=== PATIENT | male | born 1945 | race Caucasian/White ===

== ENCOUNTER 2021-12-04 06:17 | Inpatient (IN) | payer OTHER, MEDICAID ==
[~2021-12-04] VITALS: Ht 162.6 cm; Wt 69.2 kg
[2021-12-04 08:57] LABS: BASOPHILS % 1.1 % (0.0-2.0); EOSINOPHILS % 3.8 % (0.0-5.0); HEMATOCRIT. 36.1 % (42.0-52.0); HEMOGLOBIN. 12.2 g/dL (14.0-18.0); LYMPHOCYTES % 35.9 % (20.0-50.0); MEAN CORPUSCULAR HEMOGLOBIN 33.9 pg (28.0-32.0); MEAN CORPUSCULAR VOLUME 100.3 fL (80.0-94.0); MONOCYTES % 6.5 % (2.0-8.0); NEUTROPHILS % 52.7 % (40.0-76.0); PLATELET 183 x1000/uL (130-400); RED CELL DISTRIBUTION WIDTH 14.1 % (11.6-14.6)
[2021-12-04 10:30] LABS: CHLORIDE 100 mEq/L (98-107)
[2021-12-04 10:48] LABS: PROTHROMBIN TIME 10.5 sec (9.6-11.0)
[2021-12-04] MEDS ORDERED: IODIXANOL 320MG/ML 100 ML BOTTLE IV ONE (12:39)
[2021-12-04] MEDS ORDERED: ALTEPLASE 2MG/VIAL ITC NR (13:00)
[2021-12-04] MEDS ORDERED: ACETAMINOPHEN 325MG TABLET PO PRN (13:15)
[2021-12-04] MEDS ORDERED: ONDANSETRON HCL 4MG/2ML INJ IV PRN (13:15)
[2021-12-04] MEDS ORDERED: CLONIDINE 0.1MG TABLET PO PRN (13:15)
[2021-12-04] MEDS ORDERED: ALTEPLASE 2MG/VIAL ITC ONE (13:15)
[2021-12-04] MEDS: DEXT 5%/0.45% NACL 1000ML 1,000 ML IV SCH (13:15)
[2021-12-04] MEDS ORDERED: FENTANYL CITRATE/PF 50MCG/ML 2ML VIAL ONE (13:29)
[2021-12-04] MEDS ORDERED: MIDAZOLAM HCL 2 MG/2 ML VIAL ONE (13:29)
[2021-12-04] MEDS ORDERED: HEPARIN 1000 UNITS/ML 10ML ONE (13:31)
[2021-12-04] MEDS ORDERED: LIDOCAINE HCL 1% 20ML VIAL (Pyxis) INJ ONE (13:35)
[2021-12-04] MEDS ORDERED: HYDRALAZINE 20MG/ML VIAL ONE (13:37)
[2021-12-04 15:07] VITALS: BP 112/63
[2021-12-04] MEDS ORDERED: SUCR1TAB PO (16:10)
[2021-12-04] MEDS ORDERED: MIDO10TA PO (16:10)
[2021-12-04 19:07] VITALS: BP 110/70
[2021-12-04 20:00] VITALS: BP 95/61
[2021-12-05] VITALS: BP 108/60
[2021-12-05 04:00] VITALS: BP 108/58
[2021-12-05] MEDS: SUCRALFATE 1G TABLET PO SCH ×4 (06:41→21:10)
[2021-12-05 08:00] VITALS: BP 140/80
[2021-12-05] MEDS: MIDODRINE HCL 5MG TABLET PO SCH (09:22)
[2021-12-05] MEDS ORDERED: CEFTRIAXONE 1 G PREMIX 50 ML IV SCH (11:45)
[2021-12-05 12:00] VITALS: BP 180/96
[2021-12-05] MEDS: DEXT 5%/0.45% NACL 1000ML 1,000 ML IV SCH (13:15)
[2021-12-05 13:28] LABS: BASOPHILS % 0.7 % (0.0-2.0); EOSINOPHILS % 3.6 % (0.0-5.0); HEMATOCRIT. 32.6 % (42.0-52.0); HEMOGLOBIN. 11.1 g/dL (14.0-18.0); LYMPHOCYTES % 37.9 % (20.0-50.0); MEAN CORPUSCULAR HEMOGLOBIN 33.3 pg (28.0-32.0); MEAN CORPUSCULAR VOLUME 97.9 fL (80.0-94.0); MONOCYTES % 6.5 % (2.0-8.0); NEUTROPHILS % 51.3 % (40.0-76.0); PLATELET 157 x1000/uL (130-400); RED BLOOD CELL COUNT 3.33 mill/uL (4.7-6.1)
[2021-12-05] MEDS ORDERED: VANCOMYCIN 1GM PMX (XELLIA) 200 ML IV NR (14:00)
[2021-12-05 14:01] LABS: CHLORIDE 106 mEq/L (98-107)
[2021-12-05] MEDS ORDERED: PIPERACILLIN/TAZOBACTAM 3.375 G in DEXTROSE 5% WATER 50 ML IV SCH (15:30)
[2021-12-05 16:00] VITALS: BP 108/69
[2021-12-05 20:00] VITALS: BP 148/83
[2021-12-05] MEDS: CEFEPIME 1,000 MG in DEXTROSE 5% WATER 50 ML IV SCH (21:10)
[2021-12-06] VITALS: BP 107/64
[2021-12-06 04:00] VITALS: BP 98/54
[2021-12-06] MEDS: SUCRALFATE 1G TABLET PO SCH ×4 (05:38→20:39)
[2021-12-06 08:00] VITALS: BP_SYST 136; BP_SYST 137; BP_DIAS 69; BP_DIAS 80
[2021-12-06] MEDS: MIDODRINE HCL 5MG TABLET PO SCH (09:00)
[2021-12-06 12:00] VITALS: BP 124/76
[2021-12-06] MEDS: DEXT 5%/0.45% NACL 1000ML 1,000 ML IV SCH (12:58)
[2021-12-06] MEDS: PANTOPRAZOLE SODIUM 40 MG/VIAL IV SCH ×2 (12:58→13:00)
[2021-12-06 16:00] VITALS: BP 136/73
[2021-12-06] MEDS: CEFEPIME 1,000 MG in DEXTROSE 5% WATER 50 ML IV SCH (16:44)
[2021-12-06 20:00] VITALS: BP 91/56
[2021-12-07] VITALS: BP 167/61
[2021-12-07 00:59] VITALS: BP 124/80
[2021-12-07 04:00] VITALS: BP 115/74
[2021-12-07] MEDS: SUCRALFATE 1G TABLET PO SCH ×2 (05:55→12:46)
[2021-12-07 08:00] VITALS: BP 121/84
[2021-12-07] MEDS: MIDODRINE HCL 5MG TABLET PO SCH (09:00)
[2021-12-07] MEDS: PANTOPRAZOLE SODIUM 40 MG/VIAL IV SCH (09:45)
[2021-12-07 12:00] VITALS: BP 140/78
[2021-12-07 13:01] VITALS: BP 140/78
[2021-12-07] MEDS ORDERED: VANCOMYCIN 1GM PMX (XELLIA) 200 ML IV NR (15:00)
== END 2021-12-07 15:45 | disposition home or self-care (01) | DRG 252 ==
LOC: ER 06:17 → 7EST 09:47 → ENRESERV 12:19
PROVIDERS: ADMIT Internal Medicine; ATTEND Internal Medicine
PROC: 05WY3JZ Revision of Synthetic Substitute in Upper Vein, Percutaneous Approach (ICD-10-PCS; principal; 2021-12-04)
PROC: 03783ZZ Dilation of Left Brachial Artery, Percutaneous Approach (ICD-10-PCS; 2021-12-04)
PROC: 3E03317 Introduction of Other Thrombolytic into Peripheral Vein, Percutaneous Approach (ICD-10-PCS; 2021-12-04)
PROC: 057F3ZZ Dilation of Left Cephalic Vein, Percutaneous Approach (ICD-10-PCS; 2021-12-04)
DX: T82.510A Breakdown (mechanical) of surgically created arteriovenous fistula, initial encounter (principal); N18.6 End stage renal disease; N39.0 Urinary tract infection, site not specified; I12.0 Hypertensive chronic kidney disease with stage 5 chronic kidney disease or end stage renal disease; T82.818A Embolism due to vascular prosthetic devices, implants and grafts, initial encounter; D63.8 Anemia in other chronic diseases classified elsewhere; E11.22 Type 2 diabetes mellitus with diabetic chronic kidney disease; I95.9 Hypotension, unspecified; Z99.2 Dependence on renal dialysis; N40.0 Benign prostatic hyperplasia without lower urinary tract symptoms; Z96.0 Presence of urogenital implants; Z87.19 Personal history of other diseases of the digestive system; Y71.2 Prosthetic and other implants, materials and accessory cardiovascular devices associated with adverse incidents; Y83.2 Surgical operation with anastomosis, bypass or graft as the cause of abnormal reaction of the patient, or of later complication, without mention of misadventure at the time of the procedure; Y92.89 Other specified places as the place of occurrence of the external cause
CPT/HCPCS: 36415; 36901; 37184; 37248; 71045; 75710; 80053; 80202; 84145; 85025; 87426; 93005; 99285; C1725; C1769; C1894; C9113; C9803; J0360; J0692; J0696; J1644; J2250; J2543; J2997; J3010; J3370; J3490; J7060; Q9967